=== PATIENT | female | born 1960 | race Two or more races ===

== ENCOUNTER 2024-09-04 09:35 | Inpatient (IN) | payer OTHER, MEDICAID ==
[~2024-09-04] VITALS: Ht 175.3 cm; Wt 92.4 kg
[2024-09-04 01:00] VITALS: BP 150/80; PULSE 67; RESP 18; TEMP 98.1; O2SAT 97
--- NOTE | 2024-09-04 10:22 | ED.PDOC ---
Back pain HPI HPI Comments 63 y/o F, with PMHx of chronic shoulder pain, HTN, and DM presents to the ED for CC of neck pain. Patient states, she has been experiencing neck pain that radiates into her shoulders and down her right arm onset, Tuesday (09/04/24). Patient reports, taking a [place] to try and alleviate pain with no relief. Patient denies bending, twisting, lifting, or recent trauma. No other symptoms or modifying factors present at this time. Chief Complaint: Neck Pain Time Seen by MD: 10:16 Reviewed Notes: Nurses Notes, Medications, Allergies Allergies: Coded Allergies: Iodine (Verified Allergy, Unknown, 09/04/24) Latex (Verified Allergy, Unknown, 09/04/24) Tramadol (Verified Allergy, Unknown, 09/04/24) Information Source: Patient Mode of Arrival: Ambulatory Timing: Days Duration: Since onset Severity: Moderate Prehospital treatment: None Onset: Spontaneous History of: Other (chronic shoulder pain) Associated signs and symptoms: None Past Medical History PAST MEDICAL HISTORY: DM, HTN Surgical History: Denies all surgeries [employer] History: Denies all [employer] Hx Family History Family History: Unknown Social History Smoker: Non-Smoker Alcohol: Denies ETOH Use Drugs: Denies Drug Use Lives In: Home Constitutional: denies: chills, diaphoresis, fatigue, fever, malaise, sweats, weakness, others EENTM: denies: blurred vision, double vision, ear bleeding, ear discharge, ear drainage, ear pain, ear ringing, eye pain, eye redness, hearing loss, mouth pain, mouth swelling, nasal discharge, nose bleeding, nose congestion, nose pain, photophobia, tearing, throat pain, throat swelling, voice changes, others Respiratory: denies: cough, hemoptysis, orthopnea, SOB at rest, shortness of breath, SOB with excertion, stridor, wheezing, others Cardiovascular: denies: chest pain, dizzy spells, diaphoresis, Dyspnea on exertion, edema, irregular heart beat, left arm pain, lightheadedness, palpitations, PND, syncope, others Gastrointestinal: denies: abdomen distended, abdominal pain, blood streaked bowels, constipated, diarrhea, dysphagia, difficulty swallowing, hematemesis, melena, nausea, poor appetite, poor fluid intake, rectal bleeding, rectal pain, vomiting, others Genitourinary: denies: abnormal vagina bleeding, burning, dyspareunia, dysuria, flank pain, frequency, hematuria, incontinence, pain, , vagina discharge, urgency, others Neurological: denies: dizziness, fainting, headache, left sided numbness, left sided weakness, numbness, paresthesia, pre-existing deficit, right sided numbness, right sided weakness, seizure, speech problems, tingling, tremors, weakness, others Musculoskeletal: reports: neck pain; denies: back pain, gout, joint pain, joint swelling, muscle pain, muscle stiffness, others Integumetry: denies: bruises, change in color, change in hair/nails, dryness, l aceration, lesions, lumps, rash, wounds, others Allergic/Immunocompromised: denies: Difficulty Healing, Frequent Infections, Hives, Itching, others Hematologic/Lymphatic: denies: anemia, blood clots, easy bleeding, easy bruising, swollen glands, others Endocrine: denies: excessive hunger, excessive sweating, excessive thirst, excessive urination, flushing, intolerance to cold, intolerance to heat, unexplained weight gain, unexplained weight loss, others Psychiatric: denies: anxiety, bipolar disorder, depression, hopeless, panic disorder, schizophrenia, sleepless, suicidal, others All Other Systems: Reviewed and Negative Physical Exam General Appearance: Moderate Distress HEENT: Normal ENT Inspection, Pharynx Normal, TMs Normal Neck: Full Range of Motion, Non-Tender, Normal, Normal Inspection Respiratory: Chest Non-Tender, Lungs Clear, No Accessory Muscle Use, No Respiratory Distress, Normal Breath Sounds Cardiovascular: No Edema, No JVD, No Murmur, No Gallop, Normal Peripheral Pulses, Regular Rate/Rhythm Breast Exam: Deferred Gastrointestinal: No Organomegaly, Non Tender, No Pulsatile Mass, Normal Bowel Sounds, Soft Genitalia: Deferred Pelvic: Deferred Rectal: Deferred Extremities: No calf tenderness, Normal capillary refill, Normal inspection, Normal range of motion, Non-tender, No pedal edema Musculoskeletal : Apperance: Normal Neurologic: Alert Cerebellar Function: NOT DONE Reflexes: NOT DONE Skin: Dry, Normal Color, Warm Peripheral Pulses: 3+ Radial (R), 3+ Radial (L) Lymphatic: No Adenopathy Was a procedure done? Was a procedure done?: No Back Pain Differential Dx Differential Diagnosis: Fracture, Musculoskeletal Pain X-Ray, Labs, Meds, VS Vital Signs Date Time Temp Pulse Resp B/P (MAP) Pulse Ox O2 Delivery O2 Flow Rate FiO2 09/04/24 12:51 99.1 69 17 141/79 (99) 100 99.1 09/04/24 09:56 69 09/04/24 09:53 98.1 73 21 152/80 (104) 97 98.1 Lab Test 09/04/24 10:47 Range/Units White Blood Count 8.8 4.4-10.8 10^3/uL Red Blood Count 3.49 L 4.0-5.20 10^6/uL Hemoglobin 11.0 L 12.2-16.2 g/dL Hematocrit 33.1 L 36.0-46.0 % Mean Corpuscular Volume 95.1 80.0-100.0 fL Mean Corpuscular Hemoglobin 31.7 28.0-32.0 pg Mean Corpuscular Hemoglobin Concent 33.3 32.0-36.0 g/dL Red Cell Distribution Width 13.7 11.8-14.3 % Platelet Count 210 140-450 10^3/uL Mean Platelet Volume 8.0 6.9-10.8 fL Neutrophils (%) (Auto) 75.8 37.0-80.0 % Lymphocytes (%) (Auto) 17.0 10.0-50.0 % Monocytes (%) (Auto) 6.3 0.0-12.0 % Eosinophils (%) (Auto) 0.4 0.0-7.0 % Basophils (%) (Auto) 0.5 0.0-2.0 % Neutrophils # (Auto) 6.7 1.6-8.6 10 ^3/uL Lymphocytes # (Auto) 1.5 0.4-5.4 10 ^3/uL Monocytes # (Auto) 0.6 0-1.3 10 ^3/uL Eosinophils # (Auto) 0 0-0.8 10 ^3/uL Basophils # (Auto) 0 0-0.2 10 ^3/uL Nucleated Red Blood Cells 0.0 % Sodium Level 138 136-145 mmol/L Potassium Level 4.3 3.5-5.1 mmol/L Chloride Level 108 H 98-107 mmol/L Carbon Dioxide Level 21 20-31 mmol/L Anion Gap 9 5-15 Blood Urea Nitrogen 24 H 9-23 mg/dL Creatinine 1.58 H 0.550-1.02 mg/dL Glomerular Filtration Rate Calc 36 >90 mL/min BUN/Creatinine Ratio 15.2 10.0-20.0 Serum Glucose 168 H 74-106 mg/dL Calcium Level 10.5 H 8.7-10.4 mg/dL Troponin I High Sensitivity 7 </=34 ng/L [place] [id number] Ph: [phone] DIAGNOSTIC IMAGING Diagnostic Imaging Report : [id number] Signed PATIENT: STEVE RAI ACCT: [id number] UNIT: [id number] : 1960 LOC: ER ROOM / BED: / AGE / SEX: 63 / F ADM STATUS: REG ER SERVICE 1013 ORDERING PHYSICIAN: SABINE KAUR MD PROCEDURE(s): CS2 - CERVICAL WITHOUT CONTRAST REASON: pain ORDER NUMBER(s): [id number], ACCESSION NUMBER(s): [id number] EXAM: CT CERVICAL WITHOUT CONTRAST HISTORY: pain COMPARISON: None CTDIvol 28.6 mGy, DLP 905.47 mGy*cm. TECHNIQUE: Multiple axial CT images of the spine were obtained using bone algorithm. Axial and coronal reformatting was done. Bone and soft tissue windows were reviewed. FINDINGS: No evidence of definite acute fracture, spinal dislocation, or significant appearing acute subluxation is seen. Multilevel degenerative changes of the spine. IMPRESSION: No definite CT evidence of acute fracture or dislocation of the bony cervical spine. ATED BY: PHILIP JUAREZ MD DICTATED DATE/TIME: 09/04/24 111 SIGNED BY: PHILIP JUAREZ MD SIGNED DATE/TIME: 09/04/24 111 CC: Patient alert. Complaining of neck pain. CT of the cervical spine does not reveal any acute process. Vitals stable. On examination she does have tenderness while rotating her neck. She continues to have neck pain. Blood sugar elevated. Cardiac marker within normal limits. WBC within normal limits. She did mention having chest discomfort. EKG reviewed does not show any acute changes. Explained to the patient. For pain she was given morphine. Was given Zofran. Time of 1ST Reevaluation: 10:46 Reevaluation 1ST: Unchanged Patient Education/Counseling: Diagnosis, Treatment Family Education/Counseling: No Family Present Departure 1 Departure Time of Disposition: 12:53 Impression: Primary Impression: Cervical spine degeneration Qualified Codes: M47.12 - Other spondylosis with myelopathy, cervical region Additional Impressions: HTN (hypertension) Qualified Codes: I10 - Essential (primary) hypertension Uncontrolled diabetes mellitus Qualified Codes: E13.65 - Other specified diabetes mellitus with hyperglycemia Disposition: ADMITTED INPATIENT Admit to: Med Surg Condition: Guarded Critical Care Note Critical Care Time?: No Stability Stability form required: No Heart Score Heart Score: Heart Score Response (Comments) Value History Slightly Suspicious 0 EKG Normal 0 Age >65 2 Risk Factors >3 or Hx ASHD 2 Troponin Normal limit 0 Total 4 I personally scribed for SABINE KAUR MD ([email or web address]) on 09/04/24 at 10:22. Electronically submitted by Brandy Inman ([email or web address]). I personally scribed for SABINE KAUR MD ([email or web address]) on 09/04/24 at 11:41. Electronically submitted by Brandy Inman ([email or web address]). SABINE KAUR MD September 04, 2024 10:22
[2024-09-04 10:56] LABS: Basophils # (auto) 0 10 ^3/uL (0-0.2); Basophils % (auto) 0.5 % (0.0-2.0); Eosinophils # (auto) 0 10 ^3/uL (0-0.8); Eosinophils % (auto) 0.4 % (0.0-7.0); Hematocrit 33.1 % (36.0-46.0); Lymphocytes # (auto) 1.5 10 ^3/uL (0.4-5.4); Mean Corpuscular Hemoglobin 31.7 pg (28.0-32.0); Mean Corpuscular Hgb Conc. 33.3 g/dL (32.0-36.0); Mean Corpuscular Volume 95.1 fL (80.0-100.0); Monocytes # (auto) 0.6 10 ^3/uL (0-1.3); Monocytes % (auto) 6.3 % (0.0-12.0); Neutrophils # (auto) 6.7 10 ^3/uL (1.6-8.6); Neutrophils % (auto) 75.8 % (37.0-80.0); Platelet Count (auto) 210 10^3/uL (140-450); Red Blood Cells 3.49 10^6/uL (4.0-5.20); Red Cell Distribution Width 13.7 % (11.8-14.3); White Blood Cell 8.8 10^3/uL (4.4-10.8)
[2024-09-04 11:04] LABS: Potassium 4.3 mmol/L (3.5-5.1); Sodium 138 mmol/L (136-145)
[2024-09-04 11:06] LABS: Anion Gap 9 (5-15); Carbon Dioxide 21 mmol/L (20-31)
[2024-09-04 11:07] LABS: Calcium 10.5 mg/dL (8.7-10.4); Chloride 108 mmol/L (98-107)
[2024-09-04 11:11] LABS: BUN/Creatinine Ratio 15.2 (10.0-20.0); Blood Urea Nitrogen 24 mg/dL (9-23); Glucose 168 mg/dL (74-106)
--- NOTE | 2024-09-04 11:16 | DVH ---
EXAM: CT CERVICAL WITHOUT CONTRAST HISTORY: pain COMPARISON: None CTDIvol 28.6 mGy, DLP 905.47 mGy*cm. TECHNIQUE: Multiple axial CT images of the spine were obtained using bone algorithm. Axial and smith l reformatting was done. Bone and soft tissue windows were reviewed. FINDINGS: No evidence of definite acute fracture, spinal dislocation, or significant appearing acute subluxatio n is seen. Multilevel degenerative changes of the spine. IMPRESSION: No definite CT evidence of acute fracture or dislocation of the bony cervical spine.
[2024-09-04] MEDS ORDERED: MORPHINE SULFATE 4 MG/ML SYR/VIAL IV ONE (13:00)
--- NOTE | 2024-09-04 13:12 | DVHHP2 ---
History of Present Illness Reason for Visit: Neck pain History of Present Illness 63-year-old female past medical history kidney failure with likely CKD stage 3 shoulder pain hypertension diabetes heart problems open heart surgery January [address] Lewis chief complaint patient comes in with since Tuesday she woke up and she has been having pain in her neck she feels that she had slept wrong because she has been having symptoms like severe muscle spasm type pain in the back of her neck and radiates to her shoulders patient states it is like a burning stabbing pain nothing makes it better nothing makes it worse she has been took her OxyContin which did not help her pain is on both sides her neck is it caused pain when she is moving her neck from [id number] she denies any recent fall or injury she denies any chest pain denies any shortness with the breath no tearing sensation in his in her chest she denies any headache no dizziness no thunderclap headache she does state she has a difficulty raising her arms due to the pain when evaluating patient's labs and imaging from the ED someone was given Zofran and morphine H&H was 11.0 and 33.1 chloride was 108 and creatinine was 1.58 and 24 glucose was 168 calcium was 10.[address] C-spine was unremarkable. With these findings we will admit and provide pain management for pt Past Medical History See HPI above Past Surgical History See HPI above Past Social History The patient lives at home, denies smoking, alcohol or illicit drugs abuse. Review of Systems Constitutional: No: Fever, Chills, Sweats, Weakness, Malaise, Other Eyes: No: Pain, Vision change, Conjunctivae inflammation, Eyelid inflammation, Other, Redness ENT: No: Ear pain, Ear discharge, Nose pain, Nose discharge, Nose congestion, Mouth pain, Mouth swelling, Throat pain, Throat swelling, Other Respiratory: No: Cough, Dry, Shortness of breath, SOB with excertion, Wheezing, Hemoptysis, Pleuritic Pain, Sputum, Wheezing, Other Cardiovascular: No: Chest Pain, Palpitations, Orthopnea, Paroxysmal Noc. Dyspnea, Edema, Lt Headedness, Other Gastrointestinal: No: Nausea, Vomiting, Abdominal Pain, Diarrhea, Constipation, Melena, Hematochezia, Other Musculoskeletal: neck pain; No: other, shoulder pain, arm pain, back pain, hand pain, leg pain, foot pain Skin: No: Rash, Lesions, Jaundice, Bruising, Other Neurological: No: Weakness, Numbness, Incoordination, Change in speech, Confusion, Seizures, Other Allergies: Coded Allergies: Iodine (Verified Allergy, Unknown, 09/04/24) Latex (Verified Allergy, Unknown, 09/04/24) Tramadol (Verified Allergy, Unknown, 09/04/24) Exam Vital Signs Vital Signs Date Time Temp Pulse Resp B/P (MAP) Pulse Ox O2 Delivery O2 Flow Rate FiO2 09/04/24 12:51 99.1 69 17 141/79 (99) 100 99.1 General Appearance: Alert, Oriented X3, Cooperative, No acute distress HEENT: Atraumatic, PERRLA, EOMI, Mucous membr. moist/pink Respiratory: Clear to auscultation, Normal air movement Cardiovascular: Regular rate, Normal S1, No murmurs Abdominal: Normal bowel sounds, Soft, No tenderness, No hepatospenomegaly, No masses Extremities: No clubbing, No cyanosis, No edema, Normal pulses, No tenderness/swelling Skin: No rashes, No breakdown, No significant lesion Neuro: Normal gait, Normal speech, Strength at 5/5 X4 ext, Normal tone, Sensation intact, Cranial nerves 3-12 NL, Other (Decreased range of motion with flexion-extension and rotation due to pain) Psych/Mental Status: Mental status NL, Mood NL Labs/Xrays CT scan C-spine unremarkable I reviewed labs, imaging CT scan abdomen pelvis, EKG and all diagnostic studies on this patient from ED records and the medical chart Labs Test 09/04/24 10:47 Range/Units White Blood Count 8.8 4.4-10.8 10^3/uL Red Blood Count 3.49 L 4.0-5.20 10^6/uL Hemoglobin 11.0 L 12.2-16.2 g/dL Hematocrit 33.1 L 36.0-46.0 % Mean Corpuscular Volume 95.1 80.0-100.0 fL Mean Corpuscular Hemoglobin 31.7 28.0-32.0 pg Mean Corpuscular Hemoglobin Concent 33.3 32.0-36.0 g/dL Red Cell Distribution Width 13.7 11.8-14.3 % Platelet Count 210 140-450 10^3/uL Mean Platelet Volume 8.0 6.9-10.8 fL Neutrophils (%) (Auto) 75.8 37.0-80.0 % Lymphocytes (%) (Auto) 17.0 10.0-50.0 % Monocytes (%) (Auto) 6.3 0.0-12.0 % Eosinophils (%) (Auto) 0.4 0.0-7.0 % Basophils (%) (Auto) 0.5 0.0-2.0 % Neutrophils # (Auto) 6.7 1.6-8.6 10 ^3/uL Lymphocytes # (Auto) 1.5 0.4-5.4 10 ^3/uL Monocytes # (Auto) 0.6 0-1.3 10 ^3/uL Eosinophils # (Auto) 0 0-0.8 10 ^3/uL Basophils # (Auto) 0 0-0.2 10 ^3/uL Nucleated Red Blood Cells 0.0 % Sodium Level 138 136-145 mmol/L Potassium Level 4.3 3.5-5.1 mmol/L Chloride Level 108 H 98-107 mmol/L Carbon Dioxide Level 21 20-31 mmol/L Anion Gap 9 5-15 Blood Urea Nitrogen 24 H 9-23 mg/dL Creatinine 1.58 H 0.550-1.02 mg/dL Glomerular Filtration Rate Calc 36 >90 mL/min BUN/Creatinine Ratio 15.2 10.0-20.0 Serum Glucose 168 H 74-106 mg/dL Calcium Level 10.5 H 8.7-10.4 mg/dL Troponin I High Sensitivity 7 </=34 ng/L Assessment/Plan Assessment/Plan acute intractable neck pain ct scan normal results ordered soma to be continued ordered morphine as needed for pain ordered lidocaine patch acute on chronic ckd stage 3 ordered urine sodium and crea to check fena ordered ivf for now fu crea in am chronic problems shoulder pain htn dm uncontrolled ISS fen/ppx diet ivf for now scd no gi ppx since no hx of gerds or gi bleed plan admit to medicine for pain management Plan discussed with: Patient Date of Service: September 04, 2024 Billing Provider: CHANTEL WERNER DNP Common Visit Codes: [id number] INP/OBS CARE (HIGH) CHANTEL WERNER DNP September 04, 2024 13:12
[2024-09-04] MEDS ORDERED: NITROGLYCERIN 0.4 MG SL TAB SL PRN (14:15)
[2024-09-04] MEDS: SODIUM CHLORIDE 0.9% 1,000 ML IV SCH (14:15)
[2024-09-04] MEDS ORDERED: DOCUSATE SOD 100 MG CAP PO PRN (14:15)
[2024-09-04] MEDS ORDERED: ONDANSETRON HCL 4 MG/2 ML VIAL IV PRN (14:15)
[2024-09-04] MEDS ORDERED: DEXTROSE (50%) 50ML SYRG IV PRN (14:15)
[2024-09-04] MEDS: LIDOCAINE 5% TOPICAL PATCH TOP ONE (16:26)
[2024-09-04] MEDS: CARISOPRODOL 350 MG TAB PO ONE (16:26)
[2024-09-04] MEDS: ONDANSETRON HCL 4 MG/2 ML VIAL IV ONE (16:27)
[2024-09-04] MEDS: ACCU-CHEK COMFORT CURVE STRIP VI SCH (17:00)
[2024-09-04] MEDS: InsuLIN REG 1unit/0.01ml Soln (100units/ml) SC SCH (17:00)
[2024-09-04 19:45] VITALS: BP 148/57; PULSE 84; RESP 20; TEMP 99.6; O2SAT 99
[2024-09-04] MEDS: MORPHINE SULFATE INJ 2 MG/ml SYRG IV PRN (20:09)
[2024-09-04 21:00] VITALS: BP_SYST 126; BP_SYST 148; BP_DIAS 57; BP_DIAS 61; PULSE 80; PULSE 84; RESP 20; TEMP 98.4; TEMP 99.6; O2SAT 98; O2SAT 99
[2024-09-04] MEDS: HYDROcodone-ACET 5/325MG TAB PO PRN (22:24)
[2024-09-04] MEDS ORDERED: SOTA80TA PO (23:34)
[2024-09-04] MEDS ORDERED: EMPA1TAB3 PO (23:34)
[2024-09-04] MEDS ORDERED: LISI40TA16 PO (23:34)
[2024-09-04] MEDS ORDERED: OXYC325T14 PO (23:34)
[2024-09-04] MEDS ORDERED: VORT1TAB3 PO (23:34)
[2024-09-04] MEDS ORDERED: ARIP20TA4 PO (23:34)
[2024-09-05] VITALS (8 sets, daily range): BP systolic 118–161; BP diastolic 66–85; PULSE 56–68; RESP 15–18; TEMP 97.6–98.3; O2SAT 96–100
[2024-09-05] MEDS: CARISOPRODOL 350 MG TAB PO PRN (06:10)
[2024-09-05 07:52] LABS: Basophils # (auto) 0 10 ^3/uL (0-0.2); Basophils % (auto) 0.4 % (0.0-2.0); Eosinophils # (auto) 0.1 10 ^3/uL (0-0.8); Hematocrit 32.7 % (36.0-46.0); Lymphocytes # (auto) 1.5 10 ^3/uL (0.4-5.4); Lymphocytes % (auto) 16.7 % (10.0-50.0); Mean Corpuscular Hgb Conc. 33.6 g/dL (32.0-36.0); Mean Corpuscular Volume 95.2 fL (80.0-100.0); Monocytes # (auto) 0.6 10 ^3/uL (0-1.3); Monocytes % (auto) 7.2 % (0.0-12.0); Neutrophils # (auto) 6.8 10 ^3/uL (1.6-8.6); Neutrophils % (auto) 74.7 % (37.0-80.0); Platelet Count (auto) 201 10^3/uL (140-450); Red Blood Cells 3.44 10^6/uL (4.0-5.20); Red Cell Distribution Width 13.7 % (11.8-14.3)
[2024-09-05 07:56] LABS: Alanine Aminotransferase 10 U/L (7-40); Albumin 4.6 g/dL (3.2-4.8); Alkaline Phosphatase 112 U/L (46-116); Anion Gap 10 (5-15); BUN/Creatinine Ratio 17.8 (10.0-20.0); Bilirubin, Total 0.5 mg/dL (0.2-1.0); Carbon Dioxide 20 mmol/L (20-31); Potassium 4.4 mmol/L (3.5-5.1); Sodium 139 mmol/L (136-145); Total Protein 7.9 g/dL (5.7-8.2)
[2024-09-05 07:58] LABS: Aspartate Aminotransferase 8 U/L (13-40); Blood Urea Nitrogen 29 mg/dL (9-23); Calcium 11.3 mg/dL (8.7-10.4); Chloride 109 mmol/L (98-107); Glucose 137 mg/dL (74-106)
[2024-09-05] MEDS: LIDOCAINE 5% TOPICAL PATCH TOP SCH (09:27)
--- NOTE | 2024-09-05 10:28 | ECG ---
[facility] Test Date: 2024-09-04 Test Time: 09:56:56 Pat Name: STEVE RAI Department: ER Room: 0284 B Gender: F Trade Sales Assistant: SERGIO : 1960 Requested By: SABINE KAUR Order Number: [id number] Reading MD: Roland Ortiz Measurements Intervals Bowdle Rate: 69 P: 26 HI: 161 QRS: -28 QRSD: 105 T: 166 QT: 515 QTc: 552 Interpretive Statements Sinus rhythm LVH with secondary repolarization abnormality Prolonged QT interval Electronically Signed On 09-09-2024 21:52:56 PDT by Roland Ortiz Please click the below link to view image of tracing.
--- NOTE | 2024-09-05 14:28 | DVHPN2 ---
Reviewed: Care Plan, H&P, Labs, Medications, Previous Orders, Radiology Changes from previous H/P or p: No Changes Eyes: No Pain, No Vision change, No Conjunctivae inflammation, No Eyelid inflammation, No Other, No Redness ENT: No Ear pain, No Ear discharge, No Nose pain, No Nose discharge, No Nose congestion, No Mouth pain, No Mouth swelling, No Throat pain, No Throat swelling, No Other Cardiovascular: No Chest Pain, No Palpitations, No Orthopnea, No Paroxysmal Noc. Dyspnea, No Edema, No Lt Headedness, No Other Respiratory: No Cough, No Dry, No Shortness of breath, No SOB with excertion, No Wheezing, No Hemoptysis, No Pleuritic Pain, No Sputum, No Other Gastrointestinal: No Nausea, No Vomiting, No Abdominal Pain, No Diarrhea, No Constipation, No Melena, No Hematochezia, No Other Musculoskeletal: No other; neck pain; No shoulder pain, No arm pain, No back pain, No hand pain, No leg pain, No foot pain Skin: No Rash, No Lesions, No Jaundice, No Bruising, No Other Objective Vitals Vital Signs Date Time Temp Pulse Resp B/P (MAP) Pulse Ox O2 Delivery O2 Flow Rate FiO2 09/05/24 09:26 68 18 158/68 09/05/24 09:00 98.2 100 98.2 09/05/24 08:00 Room Air* 0 21 Intake/Output Intake and Output 09/05/24 06:59 Intake Total 0 ml Balance 0 ml Intake Oral 0 ml # Voids 2 Medications Current Medications Medications Dose Ordered Sig/Diego Route Start Time Stop Time Status Last Admin Dose Admin Sodium Chloride 1,000 ml @ 70 mls/hr [id number] IV 09/04/24 14:15 09/05/24 04:33 70 MLS/HR Acetaminophen/ Hydrocodone Bitart 1 tab Q4HP PRN PO 09/04/24 14:15 09/05/24 12:21 1 TAB Ondansetron HCl 4 mg Q4HP PRN IV 09/04/24 14:15 Docusate Sodium 100 mg BIDPRN PRN PO 09/04/24 14:15 Morphine Sulfate 2 mg Q4HPRN PRN IV 09/04/24 14:15 09/05/24 09:26 2 MG Nitroglycerin 0.4 mg Q5MINP PRN SL 09/04/24 14:15 Diagnostic Test (Pha) 1 strip ACHS 09/04/24 17:00 09/05/24 12:20 1 STRIP Insulin Human Regular ACHS SC 09/04/24 17:00 09/05/24 12:28 3 UNITS Dextrose 50 ml UD PRN IV 09/04/24 14:15 Carisoprodol 350 mg Q8HPRN PRN PO 09/04/24 14:15 09/05/24 06:10 350 MG Lidocaine 1 patch DAILY TOP 09/05/24 10:00 09/05/24 09:27 1 PATCH Laboratory Results Laboratory Tests 09/05/24 06:43 Chemistry Test 09/05/24 06:43 Albumin 4.6 g/dL (3.2-4.8) Calcium Level 11.3 mg/dL (8.7-10.4) H Total Protein 7.9 g/dL (5.7-8.2) LFT Test 09/05/24 06:43 Alanine Aminotransferase (ALT) 10 U/L (7-40) Alkaline Phosphatase 112 U/L (46-116) Aspartate Amino Transferase (AST) 8 U/L (13-40) L Total Bilirubin 0.5 mg/dL (0.2-1.0) Labs and/or images reviewed: Labs reviewed by me, Image(s) reviewed by me Assessment/Plan Assessment/Plan acute intractable neck pain [place] Soma, CT neck negative for any fracture acute on chronic ckd stage 3 Chronic shoulder pain Plan discussed with: Patient Date of Service: September 05, 2024 Billing Provider: JAYDEN ZACARIAS MD Common Visit Codes: [id number] INP/OBS CARE(HIGH) JAYDEN ZACARIAS MD September 05, 2024 14:28
--- NOTE | 2024-09-05 18:15 | DVH ---
EXAM: MRI CERVICAL WO CONTRAST INDICATION: R/O Cervical fracture TECHNIQUE: Multiplanar, multisequence imaging of the cervical spine without contrast. COMPARISON: CT CERVICAL WITHOUT CONTRAST on DOS: 09/04/24 FINDINGS: [ANATOMY]: Cervical lordosis is maintained. [BONES]: The vertebral bodies are normal in height, alignment, and marrow signal. Trace anterolisthes is C5 over C6. [CERVICAL CORD]: The cervical cord is normal in signal and morphology. Spinal canal narrowing seconda ry to predominantly posterior disc osteophyte complex at C6-7 [DISCS]: Diffuse disc desiccation. Intervertebral disc height loss at C6-7 [FACETS]: Asymmetric multilevel [id number] facet arthropathy [OTHER]: There is no prevertebral soft tissue swelling. The visualized paraspinal soft tissues are no rmal. [C2-C3]: Unremarkable. [C3-C4]: Circumferential disc bulge measuring 2-3 mm with posterior extension. At least moderate righ t and mild left foraminal narrowing. Right-sided uncovertebral spurring. [C4-C5]: Unremarkable. [C5-C6]: Trace anterolisthesis C5 over C6.2-3 mm broad-based posterior disc protrusion /disc uncoveri ng. Ligamentum flavum buckling. [C6-C7]: Severe intervertebral disc height loss. Posterior disc osteophyte complex measuring up to 4- 5 mm. Effacement of the ventral thecal sac. Central location. Impression upon the cervical cord. [C7-T1]: Unremarkable. IMPRESSION: 1. Central posterior disc osteophyte complex measuring 4-5 mm at C6-7 causing impression upon the cer vical cord. 2. Severe intervertebral disc height loss C6-7. 3. Circumferential disc bulge measuring 2-3 mm with posterior extension at C3-4. 4. Moderate right and mild left foraminal narrowing at C3-4.
[2024-09-05] MEDS: MORPHINE SULFATE 4 MG/ML SYR/VIAL IV PRN (20:46)
[2024-09-06 05:00] VITALS: BP 112/66; PULSE 55; RESP 16; TEMP 98.6; O2SAT 94
[2024-09-06 09:00] VITALS: BP 130/57; PULSE 65; RESP 20; TEMP 98.1; O2SAT 96
--- NOTE | 2024-09-06 11:49 | DVHPN2 ---
Reviewed: Care Plan, H&P, Labs, Medications, Previous Orders, Radiology Changes from previous H/P or p: No Changes Eyes: No Pain, No Vision change, No Conjunctivae inflammation, No Eyelid inflammation, No Other, No Redness ENT: No Ear pain, No Ear discharge, No Nose pain, No Nose discharge, No Nose congestion, No Mouth pain, No Mouth swelling, No Throat pain, No Throat swelling, No Other Cardiovascular: No Chest Pain, No Palpitations, No Orthopnea, No Paroxysmal Noc. Dyspnea, No Edema, No Lt Headedness, No Other Respiratory: No Cough, No Dry, No Shortness of breath, No SOB with excertion, No Wheezing, No Hemoptysis, No Pleuritic Pain, No Sputum, No Other Gastrointestinal: No Nausea, No Vomiting, No Abdominal Pain, No Diarrhea, No Constipation, No Melena, No Hematochezia, No Other Musculoskeletal: No other; neck pain; No shoulder pain, No arm pain, No back pain, No hand pain, No leg pain, No foot pain Skin: No Rash, No Lesions, No Jaundice, No Bruising, No Other Objective Vitals Vital Signs Date Time Temp Pulse Resp B/P (MAP) Pulse Ox O2 Delivery O2 Flow Rate FiO2 09/06/24 10:52 65 20 130/57 09/06/24 09:00 98.1 96 98.1 09/05/24 20:00 Room Air* 0 21 Intake/Output Intake and Output 09/06/24 07:00 Intake Total 2600 ml Balance 2600 ml Intake Oral 2600 ml # Voids 8 Medications Current Medications Medications Dose Ordered Sig/Diego Route Start Time Stop Time Status Last Admin Dose Admin Sodium Chloride 1,000 ml @ 70 mls/hr [id number] IV 09/04/24 14:15 09/05/24 04:33 70 MLS/HR Acetaminophen/ Hydrocodone Bitart 1 tab Q4HP PRN PO 09/04/24 14:15 09/06/24 03:13 1 TAB Ondansetron HCl 4 mg Q4HP PRN IV 09/04/24 14:15 Docusate Sodium 100 mg BIDPRN PRN PO 09/04/24 14:15 Nitroglycerin 0.4 mg Q5MINP PRN SL 09/04/24 14:15 Diagnostic Test (Pha) 1 strip ACHS 09/04/24 17:00 09/06/24 06:35 1 STRIP Insulin Human Regular ACHS SC 09/04/24 17:00 09/06/24 06:31 2 UNITS Dextrose 50 ml UD PRN IV 09/04/24 14:15 Carisoprodol 350 mg Q8HPRN PRN PO 09/04/24 14:15 09/05/24 22:26 350 MG Lidocaine 1 patch DAILY TOP 09/05/24 10:00 09/06/24 10:16 1 PATCH Morphine Sulfate 2 mg Q4HPRN PRN IV 09/05/24 20:45 09/06/24 10:52 2 MG Laboratory Results Laboratory Tests 09/05/24 06:43 Labs and/or images reviewed: Labs reviewed by me, Image(s) reviewed by me Assessment/Plan Assessment/Plan Acute intractable neck pain [place] [facility], CT neck negative for any fracture MRI C-spine shows Central posterior disc osteophyte complex measuring 4-5 mm at C6-7 causing impression upon the cervical cord. Acute on chronic ckd stage 3 Chronic shoulder pain Patient was advised to follow up with her primary doctor Dr. Margareth Greene to refer her to orthopedic surgeon Dr. Apodaca as an outpatient for possible c - spine srgery. Plan discussed with: Patient My Orders Orders - JAYDEN ZACARIAS MD Procedure Category Date Status Time Cervical Wo Contrast MRI 09/05/24 Resulted 14:45 Date of Service: September 06, 2024 Billing Provider: JAYDEN ZACARIAS MD Common Visit Codes: [id number] INP/OBS CARE(HIGH) JAYDEN ZACARIAS MD September 06, 2024 11:49
--- NOTE | 2024-09-06 11:53 | DVHDS2 ---
Discharge Summary Date of Admission September 04, 2024 at 14:07 Date of Discharge: September 06, 2024 Admitting Diagnosis Severe neck pain Wounds: None Labs/Diagnostic Data: Laboratory Results Test 09/06/24 06:19 09/05/24 06:43 09/04/24 10:47 POC Glucose 146 mg/dl (70-106) White Blood Count 9.0 10^3/uL (4.4-10.8) Red Blood Count 3.44 10^6/uL (4.0-5.20) Hemoglobin 11.0 g/dL (12.2-16.2) Hematocrit 32.7 % (36.0-46.0) Mean Corpuscular Volume 95.2 fL (80.0-100.0) Mean Corpuscular Hemoglobin 32.0 pg (28.0-32.0) Mean Corpuscular Hemoglobin Concent 33.6 g/dL (32.0-36.0) Red Cell Distribution Width 13.7 % (11.8-14.3) Platelet Count 201 10^3/uL (140-450) Mean Platelet Volume 8.4 fL (6.9-10.8) Neutrophils (%) (Auto) 74.7 % (37.0-80.0) Lymphocytes (%) (Auto) 16.7 % (10.0-50.0) Monocytes (%) (Auto) 7.2 % (0.0-12.0) Eosinophils (%) (Auto) 1.0 % (0.0-7.0) Basophils (%) (Auto) 0.4 % (0.0-2.0) Neutrophils # (Auto) 6.8 10 ^3/uL (1.6-8.6) Lymphocytes # (Auto) 1.5 10 ^3/uL (0.4-5.4) Monocytes # (Auto) 0.6 10 ^3/uL (0-1.3) Eosinophils # (Auto) 0.1 10 ^3/uL (0-0.8) Basophils # (Auto) 0 10 ^3/uL (0-0.2) Nucleated Red Blood Cells 0.0 % Sodium Level 139 mmol/L (136-145) Potassium Level 4.4 mmol/L (3.5-5.1) Chloride Level 109 mmol/L (98-107) Carbon Dioxide Level 20 mmol/L (20-31) Anion Gap 10 (5-15) Blood Urea Nitrogen 29 mg/dL (9-23) Creatinine 1.63 mg/dL (0.550-1.02) Glomerular Filtration Rate Calc 35 mL/min (>90) BUN/Creatinine Ratio 17.8 (10.0-20.0) Serum Glucose 137 mg/dL (74-106) Calcium Level 11.3 mg/dL (8.7-10.4) Total Bilirubin 0.5 mg/dL (0.2-1.0) Aspartate Amino Transferase (AST) 8 U/L (13-40) Alanine Aminotransferase (ALT) 10 U/L (7-40) Alkaline Phosphatase 112 U/L (46-116) Total Protein 7.9 g/dL (5.7-8.2) Albumin 4.6 g/dL (3.2-4.8) Troponin I High Sensitivity 7 ng/L (</=34) Other Laboratory Tests 09/05/24 06:43 Brief Hx & Hospital Course: 63-year-old female with a history of chronic neck pain and shoulder pain came in complaining of exacerbation of the neck pain. 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 The patient was treated with the pain medications and muscle relaxant being discharged home to follow up with the spine surgeon Dr. Apodaca as an outpatient through her primar doctor Consults/Reason for consult None Operations or Procedures CT C-spine MRI C-spine Condition at Discharge: Fair Final Diagnosis/Problems List Acute intractable neck pain [facility], [facility] neck negative for any fracture MRI C-spine shows Central posterior disc osteophyte complex measuring 4-5 mm at C6-7 causing impression upon the cervical cord. Acute on chronic ckd stage 3 Chronic shoulder pain Patient was advised to follow up with her primary doctor Dr. Margareth Greene to refer her to orthopedic surgeon Dr. Apodaca as an outpatient for possible c -spine srgery. Discharge Disposition: Home Discharge Instruct/Medications Diet: Cardiac 2g Na,low cholest Activity: Light activity Follow Up/Referral: Follow up with your primary Dr Follow up with spine surgeon Dr. Apodaca through your primary Dr for possible C-spine surgery Medications: Transmitted to pharmacy 35 (Time taken for discharge summary 35 minutes) Discharge Statement: "Patient was advised to return to the ER or call 911 if any headaches, dizziness, shortness of breath, chest pain, abdominal pain, bleeding, fevers, or worsening of medical condition. Patient was counseled about treatment plan, medications, possible side effects, patientverbalized understanding. All questions were answered to the best of my ability. This discharge took greater then 30 minutes in planning, reviewing documentation, counseling the patient, and discussing with other team members." ASSESSMENT ASSESSMENT Hospital Course Improved Assessment Acute intractable neck pain [place] [facility], CT neck negative for any fracture MRI C-spine shows Central posterior disc osteophyte complex measuring 4-5 mm at C6-7 causing impression upon the cervical cord. Acute on chronic ckd stage 3 Chronic shoulder pain Patient was advised to follow up with her primary doctor Dr. Margareth Greene to refer her to orthopedic surgeon Dr. Apodaca as an outpatient for possible c - spine srgery. Date of Service: September 06, 2024 Billing Provider: JAYDEN ZACARIAS MD Common Visit Codes: 96646-LSC/OBS DISCH DAY >30min JAYDEN ZACARIAS MD September 06, 2024 11:53
[2024-09-06] MEDS ORDERED: CARI-277 PO (11:55)
[2024-09-06] MEDS ORDERED: MORP30TA5 PO (11:56)
[2024-09-06] MEDS ORDERED: METH-1182 PO (11:56)
[2024-09-06 12:53] VITALS: BP 153/77; PULSE 60; RESP 18; TEMP 97.5; O2SAT 96
[2024-09-06 13:24] VITALS: BP 153/77; PULSE 60; RESP 18; TEMP 97.5; O2SAT 96
== END 2024-09-06 15:45 | disposition home or self-care (01) | DRG 552 ==
LOC: ER 09:35 → OVERFLOW 14:07 → WEST WING 23:59
PROVIDERS: ADMIT Family Medicine; ATTEND Family Medicine
DX: M25.78 Osteophyte, vertebrae (principal); E11.22 Type 2 diabetes mellitus with diabetic chronic kidney disease; N18.30 Chronic kidney disease, stage 3 unspecified; I12.9 Hypertensive chronic kidney disease with stage 1 through stage 4 chronic kidney disease, or unspecified chronic kidney disease; G89.29 Other chronic pain; G31.89 Other specified degenerative diseases of nervous system; Z88.8 Allergy status to other drugs, medicaments and biological substances; Z91.040 Latex allergy status; Z79.899 Other long term (current) drug therapy
CPT/HCPCS: 36415; 72125; 72141; 80048; 80053; 82962; 84484; 85025; 93005; G0378; J1815; J2405